=== PATIENT | female | born 1965 | race African-American/Black ===

== ENCOUNTER 2021-09-04 18:44 | Emergency (ER) | payer OTHER ==
[2021-09-04] MEDS ORDERED: predniSONE 20 MG TAB ONE (20:00)
[2021-09-04 20:07] LABS: #Eosinphils 0.1 10x3/uL (0.0-0.5); #Monocytes 0.4 10x3/uL (0.0-1.1); #Neutrophils 3.4 10x3/uL (1.5-8.4); %Basophils 0.4 % (0.0-2.0); %Eosinophils 1.8 % (0.0-6.0); %Lymphocytes 29.3 % (18.0-47.0); %Monocytes 7.6 % (0.0-10.0); %Neutrophils 60.7 % (40.0-75.0); Hemoglobin 12.5 g/dL (12.0-15.5); Mean Corpuscular HGB CONC 33.1 g/dL (32.0-36.0); Mean Corpuscular Volume 90.9 fl (81.6-98.3); Mean Platelet Volume 10.1 fl (7.4-10.4); Platelet Count 287 10x3/uL (150-450); RBC Distribution Width 13.9 % (11.5-14.5); Red Blood Cell (RBC) Count 4.16 10x6/uL (3.90-5.03); White Blood Cell (WBC) Count 5.6 10x3/uL (3.5-10.5)
[2021-09-04 20:23] LABS: ALT (SGPT) 10 U/L (8-55); AST (SGOT) 14 U/L (5-34); Albumin 4.2 g/dL (3.5-5.0); Alkaline Phosphatase 44 U/L (40-110); Anion Gap 14 mmol/L (10-20); BUN (Urea Nitrogen) 21 mg/dL (9.8-20.1); Bilirubin, Total 0.8 mg/dL (0.2-1.2); Calc. Creatinine Clearance 0 mL/min (70-130); Calcium 9.2 mg/dL (7.8-10.44); Carbon Dioxide 27 mmol/L (22-29); Chloride 103 mmol/L (98-107); Globulin 2.6 g/dL (2.4-3.5); Glucose 85 mg/dL (70-105); Potassium 3.6 mmol/L (3.5-5.1); Protein, Total 6.8 g/dL (6.0-8.3); Sodium 140 mmol/L (136-145)
== END 2021-09-04 21:05 | disposition home or self-care (01) ==
LOC: CSHERS 18:44
DX: J45.901 Unspecified asthma with (acute) exacerbation (principal); I10 Essential (primary) hypertension; F17.210 Nicotine dependence, cigarettes, uncomplicated
CPT/HCPCS: 36415; 71045; 80053; 84484; 85025; 93005; J7512; J7620

== ENCOUNTER 2022-03-15 09:33 | Outpatient (CLI) | payer OTHER | END 2022-03-15 09:34 | disposition home or self-care (01) | LOC: CSHLAB 09:33 | PROVIDERS: ATTEND Internal Medicine Gastroenterology | DX: Z20.822 Contact with and (suspected) exposure to COVID-19 (principal); Z12.11 Encounter for screening for malignant neoplasm of colon | CPT/HCPCS: 87811 ==

== ENCOUNTER 2022-03-20 08:19 | Day surgery (SDC) | payer OTHER ==
[2022-03-16 13:43] VITALS: BMI 20.9
[2022-03-20] MEDS ORDERED: Lidocaine 1% MPF 2 ML VIAL ONE (08:56)
[2022-03-20] MEDS ORDERED: Lidocaine 2% MPF 10 ML AMP (For Epidural Use) ONE (09:12)
[2022-03-20] MEDS ORDERED: PROPOFOL 60 ML ONE (09:12)
[2022-03-20] MEDS ORDERED: Glycopyrrolate 0.2 MG/ML 5 ML SYRINGE ONE (09:31)
[2022-03-20] MEDS ORDERED: PHENYLEPHRINE-NS 100 MCG/ML 10 ML SYRINGE ONE (09:39)
== END 2022-03-20 10:29 | disposition home or self-care (01) ==
LOC: CSHSDC 08:19
PROVIDERS: ATTEND Internal Medicine Gastroenterology
PROC: 0DBN8ZZ Excision of Sigmoid Colon, Via Natural or Artificial Opening Endoscopic (ICD-10-PCS; principal; 2022-03-20)
DX: Z12.11 Encounter for screening for malignant neoplasm of colon (principal); K63.5 Polyp of colon; F41.9 Anxiety disorder, unspecified; I10 Essential (primary) hypertension; J45.909 Unspecified asthma, uncomplicated; E03.9 Hypothyroidism, unspecified; K21.9 Gastro-esophageal reflux disease without esophagitis; K64.9 Unspecified hemorrhoids; Z20.822 Contact with and (suspected) exposure to COVID-19; Z88.8 Allergy status to other drugs, medicaments and biological substances
CPT/HCPCS: 88305; J2704

== ENCOUNTER 2022-05-12 11:04 | Outpatient (CLI) | payer OTHER ==
[2022-05-12 12:47] LABS: Hemoglobin 11.7 g/dL (12.0-15.5); Mean Corpuscular Hemoglobin 30.1 pg (27.0-33.0); Mean Corpuscular Volume 91.3 fl (81.6-98.3); Mean Platelet Volume 10.7 fl (7.4-10.4); Platelet Count 290 10x3/uL (150-450); RBC Distribution Width 16.4 % (11.5-14.5); Red Blood Cell (RBC) Count 3.89 10x6/uL (3.90-5.03)
[2022-05-12 13:11] LABS: Anion Gap 13 mmol/L (10-20); BUN (Urea Nitrogen) 18 mg/dL (9.8-20.1); Calc. Creatinine Clearance 0 mL/min (70-130); Calcium 8.7 mg/dL (7.8-10.44); Carbon Dioxide 28 mmol/L (22-29); Chloride 102 mmol/L (98-107); Estimated GFR 48; Potassium 3.4 mmol/L (3.5-5.1); Sodium 140 mmol/L (136-145)
[2022-05-12 13:15] LABS: Glucose 57 mg/dL (70-105)
== END 2022-05-12 11:05 | disposition home or self-care (01) ==
LOC: CSHLAB 11:04
PROVIDERS: ATTEND Orthopaedic Surgery
DX: Z01.818 Encounter for other preprocedural examination (principal); Z20.822 Contact with and (suspected) exposure to COVID-19; Z12.11 Encounter for screening for malignant neoplasm of colon
CPT/HCPCS: 80048; 85027; 87811; 93005; 93010

== ENCOUNTER 2022-05-17 05:45 | Day surgery (SDC) | payer OTHER ==
[2022-05-15 16:13] VITALS: BMI 21.4
[2022-05-17] MEDS ORDERED: Fentanyl 100 MCG/2 ML VIAL ONE ×2 (07:04→11:00)
[2022-05-17] MEDS ORDERED: Midazolam HCl 2 mg/2 ml Vial ONE (07:04)
[2022-05-17] MEDS ORDERED: Bupivacaine PF 0.5% 30 ML VIAL ONE (07:05)
[2022-05-17] MEDS ORDERED: Lidocaine 1% PF 5 ML VIAL ONE ×2 (07:05→07:45)
[2022-05-17] MEDS ORDERED: EPINEPHrine 1 MG/ML AMP ONE ×5 (07:34→10:50)
[2022-05-17] MEDS ORDERED: PROPOFOL 20 ML ONE (07:45)
[2022-05-17] MEDS ORDERED: Dexamethasone 20 MG/5 ML VIAL ONE (07:45)
[2022-05-17] MEDS ORDERED: Ondansetron PF 4 MG/2 ML Vial ONE (07:45)
[2022-05-17] MEDS ORDERED: Rocuronium Bromide 10 MG/ML (10ML VIAL) ONE (07:48)
[2022-05-17] MEDS ORDERED: Ondansetron PF 4 MG/2 ML Vial IVP PRN (08:00)
[2022-05-17] MEDS ORDERED: Promethazine HCl 25 MG/ML VIAL IM PRN (08:00)
[2022-05-17] MEDS ORDERED: Zolpidem Tartrate 5 MG TAB PO PRN (08:00)
[2022-05-17] MEDS ORDERED: Ropivacaine 0.2% 550 ML 550 ML NERVE BLCK SCH (08:00)
[2022-05-17] MEDS ORDERED: CEFAZOLIN 2 GM VIAL ONE (08:02)
[2022-05-17] MEDS ORDERED: ePHEDrine Sulfate 50 MG/10 ML VIAL ONE (08:52)
[2022-05-17] MEDS ORDERED: Glycopyrrolate 0.2 MG/ML 5 ML SYRINGE ONE (11:19)
== END 2022-05-17 13:10 | disposition home or self-care (01) ==
LOC: CSHSDC 05:45
PROVIDERS: ATTEND Orthopaedic Surgery
PROC: 0LS30ZZ Reposition Right Upper Arm Tendon, Open Approach (ICD-10-PCS; principal; 2022-05-17)
PROC: 0LM14ZZ Reattachment of Right Shoulder Tendon, Percutaneous Endoscopic Approach (ICD-10-PCS; principal; 2022-05-17)
DX: M75.121 Complete rotator cuff tear or rupture of right shoulder, not specified as traumatic (principal); M75.21 Bicipital tendinitis, right shoulder; I10 Essential (primary) hypertension; J45.909 Unspecified asthma, uncomplicated; F17.210 Nicotine dependence, cigarettes, uncomplicated; Z79.899 Other long term (current) drug therapy; Z20.822 Contact with and (suspected) exposure to COVID-19
CPT/HCPCS: A4306; C1713; J0171; J0690; J1100; J2250; J2405; J2704; J2795; J3010; S0020

== ENCOUNTER 2022-05-19 11:41 | Emergency (ER) | payer OTHER, SELFPAY | END 2022-05-19 12:58 | disposition home or self-care (01) | LOC: CSHERS 11:41 | DX: M96.89 Other intraoperative and postprocedural complications and disorders of the musculoskeletal system (principal); Z47.31 Aftercare following explantation of shoulder joint prosthesis; I10 Essential (primary) hypertension; Z87.891 Personal history of nicotine dependence | CPT/HCPCS: 99282 ==